=== PATIENT | female | born 1995 | race Hispanic/Latino ===

== ENCOUNTER 2016-06-06 23:05 | Emergency (ER) | payer OTHER ==
[2016-06-06] MEDS ORDERED: Sodium Chloride 0.9% 1,000 ML ONE (23:25)
[2016-06-06] MEDS ORDERED: Sodium Chloride 0.9% 100 ML ONE (23:25)
[2016-06-06] MEDS ORDERED: Metoclopramide HCl 10 MG/2 ML VIAL ONE (23:25)
[2016-06-06] MEDS ORDERED: diphenhydrAMINE HCl 50 MG/ML 1 ML VIAL ONE (23:25)
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
== END 2016-06-07 00:39 | disposition home or self-care (01) ==
LOC: NAV ERS 23:05
DX: G43.909 Migraine, unspecified, not intractable, without status migrainosus (principal); Z79.899 Other long term (current) drug therapy
CPT/HCPCS: 96374; 96375; J1200; J2765; J7050

== ENCOUNTER 2016-09-25 21:39 | Emergency (ER) | payer OTHER ==
[2016-09-25] MEDS ORDERED: Bacitracin Zinc 1 Packet ONE (22:48)
[2016-09-25] MEDS ORDERED: Ibuprofen 200 MG TAB ONE (22:57)
--- NOTE | 2016-09-25 23:29 | RAD ---
RIGHT ANKLE THREE VIEWS HISTORY: A 21-year-old female with right ankle pain following a fall down stairs. COMPARISON: 04/09/2014 FINDINGS: There are areas of unfused secondary apophyses involving the distal fibula and distal medial malleol us. This appears stable from the prior study. No acute fracture or dislocation. IMPRESSION: 1. 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 2. No acute fracture or dislocation. POS: [facility]
== END 2016-09-25 23:01 | disposition home or self-care (01) ==
LOC: NAV ERS 21:39
DX: S93.401A Sprain of unspecified ligament of right ankle, initial encounter (principal); Z79.891 Long term (current) use of opiate analgesic; X50.1XXA Overexertion from prolonged static or awkward postures, initial encounter

== ENCOUNTER 2017-03-08 12:15 | Emergency (ER) | payer OTHER ==
[2017-03-08] MEDS ORDERED: Cyclobenzaprine 10 MG TAB ONE (12:46)
[2017-03-08] MEDS ORDERED: Ketorolac Tromethamine 60 MG/2 ML VIAL ONE (12:46)
[2017-03-08 12:58] LABS: Bilirubin Negative (Negative); Blood, Urine Moderate (Negative); Clarity Clear (Clear); Glucose, Urine (Dipstick) Negative (Negative); Leukocyte Trace (Negative); Nitrite Negative (Negative); Protein, Urine (Dipstick) Negative (Neg-Trace); Urobilinogen 0.2 mg/dL (0.2-1.0); pH, Urine 5.5 (5.0-9.0)
[2017-03-08 13:02] LABS: Pregnancy Test - Urine (BHCG) Negative (Negative); Pregu Control Background? CLEAR/WHITE (CLR/WHITE); Pregu Control Bar Appear? YES (CONTROL BAR); Specific Gravity 1.027 (1.002-1.036); Specific Gravity, Urine 1.027 (1.005-1.030)
[2017-03-08 13:07] LABS: #Basophils 0.1 thou/uL (0.0-0.2); #Eosinphils 0.1 thou/uL (0.0-0.7); #Lymphocytes 1.4 thou/uL (1.20-3.40); #Monocytes 0.6 thou/uL (0.11-0.59); #Neutrophils 5.7 thou/uL (1.40-6.50); %Basophils 0.9 % (0.0-1.0); %Eosinophils 0.7 % (0.0-10.0); %Lymphocytes 17.8 % (21.0-51.0); %Neutrophils 72.6 % (42.0-75.0); Hemoglobin 14.7 g/dL (12.0-16.0); Mean Corpuscular HGB CONC 32.6 g/dL (32.0-36.0); Mean Corpuscular Hemoglobin 30.7 pg (27.0-31.0); Mean Corpuscular Volume 94.3 fl (81.0-99.0); Mean Platelet Volume 9.3 fL (7.4-10.4); Platelet Count 227 thou/uL (130-400); RBC Distribution Width 11.2 % (11.5-14.5); Red Blood Cell (RBC) Count 4.78 mill/uL (4.20-5.40); White Blood Cell (WBC) Count 7.8 thou/uL (4.8-10.8)
[2017-03-08 13:11] LABS: Bacteria/HPF Rare-Few HPF (None Seen); RBC/HPF 0-3 HPF (0-3)
[2017-03-08 13:25] LABS: ALT (SGPT) 9 U/L (8-55); AST (SGOT) 15 U/L (5-34); Albumin 4.3 g/dL (3.5-5.0); Alkaline Phosphatase 74 U/L (40-150); Anion Gap 15 mmol/L (10-20); BUN (Urea Nitrogen) 12 mg/dL (7.0-18.7); Bilirubin, Total 0.7 mg/dL (0.2-1.2); Calc. Creatinine Clearance 0 mL/min (70-130); Calcium 9.4 mg/dL (7.8-10.44); Carbon Dioxide 24 mmol/L (22-29); Chloride 104 mmol/L (98-107); Estimated GFR-MDRD 89; Globulin 3.7 g/dL (2.4-3.5); Glucose 89 mg/dL (70-105); Potassium 3.8 mmol/L (3.5-5.1); Sodium 139 mmol/L (136-145)
[2017-03-08 13:28] LABS: CKMB 1.7 ng/mL (0-6.6); Troponin I Less than 0.010 ng/mL (< 0.028)
--- NOTE | 2017-03-08 14:41 | RAD ---
CHEST TWO VIEWS: HISTORY: Chest pain. FINDINGS: The cardiac silhouette and pulmonary vasculature are unremarkable. The mediastinum is midline. The re is no confluent air space consolidation, pneumothorax, or pleural fluid evident. IMPRESSION: No active cardiopulmonary abnormalities are demonstrated. POS: [facility]
--- NOTE | 2017-03-08 14:45 | CT ---
CT ABDOMEN AND PELVIS NONCONTRAST: HISTORY: Right flank pain. FINDINGS: Each renal collecting system, ureter, and urinary bladder are incompletely distended without stone e vident. Lack of contrast limits evaluation for other abnormalities. Nonspecific lymph nodes are scattered a bout the retroperitoneum and mesentery. IMPRESSION: No CT evidence of urinary tract obstruction or calcification. POS: [facility]
== END 2017-03-08 14:15 | disposition home or self-care (01) ==
LOC: NAV ERS 12:15
DX: S39.012A Strain of muscle, fascia and tendon of lower back, initial encounter (principal); M62.838 Other muscle spasm; G43.909 Migraine, unspecified, not intractable, without status migrainosus; X58.XXXA Exposure to other specified factors, initial encounter
CPT/HCPCS: 71020; 74176; 80053; 81003; 81015; 81025; 82553; 84484; 85025; 93005; 96374; J1885

== ENCOUNTER 2017-11-05 16:26 | Emergency (ER) | payer OTHER | END 2017-11-05 17:20 | disposition home or self-care (01) | LOC: NAV ERS 16:26 | DX: J06.9 Acute upper respiratory infection, unspecified (principal); G43.909 Migraine, unspecified, not intractable, without status migrainosus | CPT/HCPCS: 87081; 87430; 99283 ==

== ENCOUNTER 2018-01-18 12:41 | Emergency (ER) | payer OTHER | END 2018-01-18 13:13 | disposition home or self-care (01) | LOC: NAV ERS 12:41 | DX: K03.81 Cracked tooth (principal); K04.7 Periapical abscess without sinus; K02.9 Dental caries, unspecified; G43.909 Migraine, unspecified, not intractable, without status migrainosus | CPT/HCPCS: 99282 ==

== ENCOUNTER 2018-05-05 20:19 | Emergency (ER) | payer OTHER ==
[2018-05-05] MEDS ORDERED: traMADol HCl 50 MG TAB ONE (20:49)
[2018-05-05] MEDS ORDERED: Clindamycin 150 MG CAP ONE (20:49)
== END 2018-05-05 20:55 | disposition home or self-care (01) ==
LOC: NAV ERS 20:19
DX: K02.9 Dental caries, unspecified (principal)
CPT/HCPCS: 99283

== ENCOUNTER 2019-01-26 06:37 | Emergency (ER) | payer OTHER ==
[2019-01-26] MEDS ORDERED: Ibuprofen 800 MG TAB ONE (06:55)
[2019-01-26] MEDS ORDERED: Cephalexin 250 MG CAP ONE (07:44)
--- NOTE | 2019-01-26 08:29 | RAD ---
CHEST 2 VIEWS: Date: 01/26/19 HISTORY: Fever, cough, history of strep. COMPARISON: 03/08/17. FINDINGS: Heart size is normal. The lungs are clear. IMPRESSION: No significant acute intrathoracic disease. POS: OFF
== END 2019-01-26 07:48 | disposition home or self-care (01) ==
LOC: NAV ERS 06:37
DX: J02.0 Streptococcal pharyngitis (principal)
CPT/HCPCS: 71046; 87430; 87804

== ENCOUNTER 2021-04-22 18:04 | Emergency (ER) | payer OTHER ==
[2021-04-22] MEDS ORDERED: Acetaminophen/Codeine 30-300mg Tablet ONE (18:49)
[2021-04-22] MEDS ORDERED: traMADol HCl 50 MG TAB ONE (18:55)
== END 2021-04-22 18:58 | disposition home or self-care (01) ==
LOC: NAV ERS 18:04
DX: S90.112A Contusion of left great toe without damage to nail, initial encounter (principal); W20.8XXA Other cause of strike by thrown, projected or falling object, initial encounter; G43.909 Migraine, unspecified, not intractable, without status migrainosus

== ENCOUNTER 2022-11-06 19:09 | Emergency (ER) | payer BC ==
[2022-11-06] MEDS ORDERED: Azithromycin 250 MG TAB ONE (19:45)
[2022-11-06] MEDS ORDERED: Ibuprofen 200 MG TAB ONE (19:45)
== END 2022-11-06 19:56 | disposition home or self-care (01) ==
LOC: NAV ERS 19:09
DX: H66.91 Otitis media, unspecified, right ear (principal); J32.9 Chronic sinusitis, unspecified
CPT/HCPCS: 99282

== ENCOUNTER 2024-04-07 18:09 | Emergency (ER) | payer BC ==
[2024-04-07] MEDS ORDERED: Acetaminophen 500 MG TAB ONE (19:14)
[2024-04-07] MEDS ORDERED: Naproxen 500 MG TAB ONE (19:14)
[2024-04-07] MEDS ORDERED: traMADol HCl 50 MG TAB ONE (19:31)
== END 2024-04-07 19:40 | disposition home or self-care (01) ==
LOC: NAV ERS 18:09
DX: S30.0XXA Contusion of lower back and pelvis, initial encounter (principal); W10.8XXA Fall (on) (from) other stairs and steps, initial encounter
CPT/HCPCS: 72131; 72192